=== PATIENT | male | born 1995 | race African-American/Black ===

== ENCOUNTER 2023-12-18 23:59 | Outpatient (BNV) | payer MEDICAID, SELFPAY | END 2023-12-21 23:59 | PROVIDERS: Visit Provider Internal Medicine | DX: I50.23 Acute on chronic systolic (congestive) heart failure (principal); Z91.128 Patient's intentional underdosing of medication regimen for other reason | CPT/HCPCS: 99223 ==

== ENCOUNTER 2024-06-10 08:14 | Outpatient (REF) | payer MEDICAID, SELFPAY ==
--- NOTE | ~2024-06-10 | XR_ITS ---
EXAMINATION: XR SHOULDER, RIGHT CLINICAL INFORMATION: Right shoulder pain COMPARISON: None available. TECHNIQUE: Three views of the right shoulder. FINDINGS: Marginal osteophytes along the humeral head and neck junction. No fracture or malalignment. The acromioclavicular joint appears normal. There is a small bony protuberance at the anterior aspect of the proximal humeral diaphysis with adjacent small calcification likely reactive related to the teres major tendon detachment. XR/XR shoulder RT min 2V IMPRESSION: 1. Mild glenohumeral osteoarthritis. No acute osseous abnormality. 2. 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 Electronically signed by: Joni Tan MD 06/16/2024 09:27 AM EDT
== END 2024-06-10 08:15 | disposition home or self-care (01) ==
LOC: HO.XRAY 08:14
PROVIDERS: PCP Physician Assistant; Visit Provider Physician Assistant
DX: M25.511 Pain in right shoulder (principal); M77.8 Other enthesopathies, not elsewhere classified
CPT/HCPCS: 73030; 99212

== ENCOUNTER 2024-06-10 08:54 | Outpatient (AMB) | payer MEDICAID, SELFPAY ==
--- NOTE | 2024-06-10 08:56 | A.OFFVIS_ITS ---
Vital Signs 06/10/24 09:03 Height 6 ft 1 in Weight 635 lb BMI 83.8 Handedness Left Intake Visit Reasons: [employer]-Right Shoulder Pain, DOI 04/05/24 Intake Note: Shaw is a 28 year old left hand dominant male who presents today as a new patient with complaints of right shoulder pain s/p slip and fall DOI: 04/05/24. Patient reports he fell through his porch and he tried to brace him self and hurt his should and neck. He mentioned that he done 3 months of PT with no relief. Patient states having numbness and tingling his shoulder and it radiates up tp his neck. Allergies No Known Allergies Allergy (Verified 06/10/24 09:00) Medication List - Last Reconciled 06/10/24 by Eleuterio Chaudhari PA-C amlodipine 10 mg PO DAILY dapagliflozin propanediol 10 mg PO DAILY gabapentin 900 mg PO TID hydralazine 75 mg PO TID insulin glargine (Lantus Solostar U-100 Insulin) 16 units subcut DAILY insulin lispro subcut metformin 500 mg PO BID metoprolol succinate ER 50 mg PO QAM oxycodone 10 mg PO Q8H PRN spironolactone 25 mg PO DAILY tamsulosin 0.4 mg PO DAILY torsemide 20 mg PO DAILY warfarin 10 mg PO DAILY HPI HPI [employer]-Right Shoulder Pain, DOI 04/05/24: Details: 28-year-old left hand dominant male who presents to the office today for an evaluation of right shoulder injury after a fall, 04/05/24. He reports he fell through his porch where he tried to brace himself and hurt his shoulder and neck. He was seen at [facility] ER after his fall. He currently states he has pain, stiffness, numbness and tingling in his shoulder that radiates up to his neck. He has tried 3 months of physical therapy with no relief. FORMERLY [facility], [facility] Medical History (Updated 06/10/24 @ 09:41 by Eleuterio Chaudhari PA-C) Morbid obesity CKD (chronic kidney disease) ELIO (obstructive sleep apnea) Hypertension CHF (congestive heart failure) Diabetes Social History (Updated 06/10/24 @ 09:02 by Cecilio Arroyo) Alcohol intake: never Patient Tobacco Use Status: Never used Tobacco Substance Use Type: Marijuana Current occupational status: employed Current occupation: [employer] Review of Systems Const All systems reviewed & are unremarkable except as noted in HPI and below Physical Exam Vital Signs: BMI result Body Mass Index 83.8 Const General: cooperative, healthy appearing, comfortable, no acute distress, well developed and alert Orientation/consciousness: patient oriented x3 HEENT Head: Yes normal to inspection, Yes normocephalic and Yes atraumatic Eyes General: appearance normal, both eyes and all related structures Resp Effort & Inspection: normal respiratory effort and able to speak in complete sentences Cardio Rate: regular rate Peripheral pulses: Peripheral pulses 2+ throughout GI Palpation (GI): Soft to palpation Skin Lesions: no lesions Rashes: no rashes Neuro General: patient oriented x3 Extrem Other: Right shoulder: Normal to inspection. Tenderness over the bicipital groove and along the deltoid region of the shoulder. Forward flexion to 175, external rotation to 90, internal rotation to S1. 5/5 RTC strength. Negative Echeverria and cross body abduction. NVI. Results Reviewed Results Reviewed: xrays of the right shoulder obtained today show what appears to be a chronic proximal humerus fracture Assessment & Plan Assessment & Plan (1) Right shoulder pain: Code(s): M25.511 - Pain in right shoulder Category: Medical Plan It appears that he had an old fracture of the humeral head which ideally would be further evaluated with a CT scan, however I will order an MRI of the right shoulder at an open MRI facility to further evaluate the soft tissues and ligamentous structures given the decreased functional ability of his right shoulder. Once this is complete, I will contact him to discuss the results. He is content with this plan. Orders: Orders MR shoulder RT wo con Today M77.8 - Other enthesopathies, not elsewhere classified XR shoulder RT min 2V Today M25.511 - Pain in right shoulder Patient Instructions: Scribed for Eleuterio Chaudhari PA-C, by Jakub Allison electromedical equipment repairer, on 06/10/2024 at 8:45 AM EST.? I, Eleuterio Chaudhari PA-C, have personally reviewed and agree with the information entered by the scribe. Coding Level of Care Code New Pt Level 3 (39028) Complex EM visit Add On G2211 Diagnoses Right shoulder pain M25.511
[2024-06-10 09:03] VITALS: BMI 83.8
== END 2024-06-10 09:42 | disposition home or self-care (01) ==
PROVIDERS: Visit Provider Physician Assistant
DX: M25.511 Pain in right shoulder (principal)
CPT/HCPCS: 99203

== ENCOUNTER → 2024-06-30 09:32 | Outpatient (BNVA) | payer MEDICAID, SELFPAY | PROVIDERS: PCP Physician Assistant; Visit Provider Physician Assistant ==

== ENCOUNTER 2024-08-03 10:27 | Outpatient (AMB) | payer MEDICAID, SELFPAY ==
--- NOTE | 2024-08-03 10:29 | A.OFFVIS_ITS ---
Vital Signs 08/03/24 10:30 Height 6 ft 1 in Weight 635 lb BMI 83.8 Intake Visit Reasons: TH- right shoulder discuss MRI Intake Note: Shaw a 28 year old male who is scheduled today for a telephone visit to discuss options for his right shoulder pain. Allergies No Known Allergies Allergy (Verified 08/03/24 10:30) HPI HPI TH- right shoulder discuss MRI: Details: 28 yo male presents for telehealth f/u Right shoulder , he had an injury to the right shoulder and since his injury has been unable to lift the right shoulder. He states over the phone that he does have some records from [facility] which show some type of fracture but he is unable to verbalize what that is. I do suspect some structural abnormality whether it is with the labrum or the rotator cuff based off his previous exam. Due to his body habitus we are unable to find a facility that can perform an MRI to further evaluate. [facility]LY [facility] Medical History (Updated 06/10/24 @ 09:41 by Eleuterio Chaudhari PA-C) Morbid obesity CKD (chronic kidney disease) ELIO (obstructive sleep apnea) Hypertension CHF (congestive heart failure) Diabetes Social History Alcohol intake: never Patient Tobacco Use Status: Never used Tobacco Substance Use Type: Marijuana Current occupational status: employed Current occupation: [employer] Review of Systems Const All systems reviewed & are unremarkable except as noted in HPI and below Physical Exam Vital Signs: BMI result Body Mass Index 83.8 Resp Effort & Inspection: normal respiratory effort and able to speak in complete sentences Assessment & Plan Assessment & Plan (1) Right shoulder pain: Code(s): M25.511 - Pain in right shoulder Category: Medical Plan: I explained to the patient that after reviewing the case with Dr. Frederick if there was any type of surgical intervention that would be warranted we would be unable to provide the services in her hospital due to the weight limit of our operative tables. The patient is content with this information. I did explain that I can set him up with a [facility] who can hopefully further evaluate his shoulder injury and provide him with the services he needs. He is content with this plan and we will reach out with him for appointments. Coding Level of Care Code Tele Est Pt Level 3 (31142) Complex EM visit Add On G2211 Diagnoses Right shoulder pain M25.511
[2024-08-03 10:30] VITALS: BMI 83.8
== END 2024-08-03 10:35 | disposition home or self-care (01) ==
LOC: HO.HOS 10:27
PROVIDERS: PCP Physician Assistant; Visit Provider Physician Assistant
DX: M25.511 Pain in right shoulder (principal)
CPT/HCPCS: 99213

== ENCOUNTER → 2024-08-03 10:27 | Outpatient (BNVA) | payer MEDICAID, SELFPAY | PROVIDERS: PCP Physician Assistant; Visit Provider Physician Assistant ==